=== PATIENT | male | born 1995 | race Caucasian/White ===

== ENCOUNTER 2017-07-19 11:47 | Emergency (ER) | payer BC ==
[~2017-07-19 11:47] MED LIST: Acetaminophen/Codeine 300-30 MG Tab ONE; Azithromycin 250 MG Tab ONE
[2017-07-19 11:59] VITALS: BP 128/91
[2017-07-19] MEDS ORDERED: Ketorolac 60 MG/2 ML SDV IM ONE (12:13)
--- NOTE | 2017-07-19 12:16 | EDM.PDOC ---
ED HPI GENERAL MEDICAL PROBLEM - General Chief Complaint: ENT Problem Stated Complaint: EAR INFECTIONS SX Time Seen by Provider: 07/19/17 12:00 Source of Information: Reports: Patient History Limitations: Reports: No Limitations - History of Present Illness INITIAL COMMENTS - FREE TEXT/NARRATIVE: ear pain; This is a 21 year old male present to ER via POV, reports here on vacation, on Friday, noted his ear to be painful, has gotten progressively worsen, now both ears are painful, fever, chills and vomited once today. no other concerns. Onset: Gradual Onset Date: 07/14/17 Duration: Day(s): (6 days) Location: Reports: Head Quality: Reports: Ache Severity: Moderate Improves with: Reports: None Worsens with: Reports: None Associated Symptoms: Reports: Fever/Chills, Nausea/Vomiting Treatments [employer]: Reports: Acetaminophen, NSAIDS - Related Data Allergies Allergy/AdvReac Type Severity Reaction Status Date / Time No Known Allergies Allergy Verified 07/19/17 11:56 Past Medical History - Past Health History Medical/Surgical History: Denies Medical/Surgical History ED ROS ENT - Review of Systems Review Of Systems: See Below Constitutional: Reports: Other (bilateral ear pain) HEENT: Reports: Ear Pain Respiratory: Reports: No Symptoms Cardiovascular: Reports: No Symptoms Endocrine: Reports: No Symptoms GI/Abdominal: Reports: Vomiting (once) : Reports: No Symptoms Musculoskeletal: Reports: No Symptoms Skin: Reports: No Symptoms Neurological: Reports: No Symptoms Psychiatric: Reports: No Symptoms Hematologic/Lymphatic: Reports: No Symptoms Immunologic: Reports: No Symptoms ED EXAM, ENT - Physical Exam Exam: See Below Exam Limited By: No Limitations General Appearance: Alert, WD/WN, Mild Distress Eye Exam: Bilateral Eye: Normal Inspection Ears: Normal External Exam, Canal Swelling, TM Bulging, TM Erythema, Other ( painful to exam) Nose: Normal Inspection, Normal Mucousa, No Blood Mouth/Throat: Normal Inspection, Normal Gums, Normal Lips, Normal Oropharynx, Normal Teeth Head: Atraumatic, Normocephalic Neck: Normal Inspection, Supple, Non-Tender, Full Range of Motion Respiratory/Chest: No Respiratory Distress, Lungs Clear, Normal Breath Sounds, No Accessory Muscle Use, Chest Non-Tender Cardiovascular: Normal Peripheral Pulses, Regular Rate, Rhythm, No Murmur Extremities: Normal Inspection Neurological: Alert, Oriented, CN II-XII Intact, Normal Cognition, Normal Gait, Normal Reflexes, No Motor/Sensory Deficits Psychiatric: Normal Affect, Normal Mood Skin: Warm, Dry, Intact, Normal Color, No Rash Lymphatic: No Adenopathy Course - Vital Signs Last Recorded V/S: Last Vital Signs Temp 36.8 C 07/19/17 11:58 Pulse 59 L 07/19/17 11:58 Resp 12 07/19/17 11:58 BP 128/91 H 07/19/17 11:58 Pulse Ox 98 07/19/17 11:58 - Orders/Labs/Meds Meds: Medications Discontinued Medications Generic Name Dose Route Start Last Admin Trade Name Joshua PRN Reason Stop Dose Admin Ketorolac Tromethamine 60 mg 07/19/17 12:13 Toradol IM 07/19/17 12:14 ONETIME ONE Departure - Departure Time of Disposition: 12:20 Disposition: Home, Self-Care 01 Condition: Good Clinical Impression: Otitis media Qualifiers: Otitis media type: suppurative Chronicity: acute Laterality: bilateral Recurrence: not specified as recurrent Spontaneous tympanic membrane rupture: without spontaneous rupture Qualified Code(s): H66.003 - Acute suppurative otitis media without spontaneous rupture of ear drum, bilateral - Discharge Information Instructions: Otitis Media, Adult, [id number], Azithromycin tablets Referrals: PCP,None [Primary Care Provider] - Forms: ED Department Discharge Additional Instructions: TAke 2 tablets azithromycin today and then 2 tablets each day until gone. Take 1 tylenol 3 tablet every 4 to 6 hours as needed for pain. Do not drink alcohol while taking tylenol 3. Care Plan Goals: Otitis Media -Toradol 60mg IM for acute pain -Zithromax 250mg; take 2 tabs daily for 3 days -continue to take Motrin 600mg every 6 to 8 hours as needed for pain -Tylenol with codiene 1 to 2 tablets every 4 to 6 hours as needed for moderate to severe pain #20 return to Clinic or ER if has increased pain,fever,chills, nausea, vomiting , diarrhea, rash or not improved. - Problem List & Annotations (1) Otitis media SNOMED Code(s): 92171757 Code(s): H66.90 - OTITIS MEDIA, UNSPECIFIED, UNSPECIFIED EAR Status: Acute Priority: High Qualifiers: Otitis media type: suppurative Chronicity: acute Laterality: bilateral Recurrence: not specified as recurrent Spontaneous tympanic membrane rupture: without spontaneous rupture Qualified Code(s): H66.003 - Acute suppurative otitis media without spontaneous rupture of ear drum, bilateral - Problem List Review Problem List Initiated/Reviewed/Updated: Yes - Assessment/Plan Plan: Otitis Media -Toradol 60mg IM for acute pain -Zithromax 250mg; take 2 tabs daily for 3 days -continue to take Motrin 600mg every 6 to 8 hours as needed for pain -Tylenol with codiene 1 to 2 tablets every 4 to 6 hours as needed for moderate to severe pain #20 return to Clinic or ER if has increased pain,fever,chills, nausea, vomiting , diarrhea, rash or not improved.
== END 2017-07-19 12:20 | disposition home or self-care (01) ==
LOC: LB.ED 11:47
DX: H66.003 Acute suppurative otitis media without spontaneous rupture of ear drum, bilateral (principal)
CPT/HCPCS: 96372; 99282; 99283; A9270